=== PATIENT | male | born 1985 | race Caucasian/White ===

== ENCOUNTER 2017-07-10 15:01 | Emergency (ER) | payer SELFPAY ==
[~2017-07-10] VITALS: Ht 185.4 cm; Wt 102.3 kg
[~2017-07-10 15:01] MED LIST: AMOXICILLIN 50500 MG PO; ATIVAN 1MG T1 MG/TAB PO; DEPAKOTE500 MG PO; DESYREL 50MG50 MG PO; KLONOPIN 0.5MG0.5 MG PO; MINIPRESS 1M1 MG/CAP PO; NORCO 325 MG-7.1 TAB PO; PERCOCET 325 MG1 TA2 PO; ULTRAM 50MG TAB50 MG PO
[2017-07-10 15:03] VITALS: TEMP 100
[2017-07-10 15:52] LABS: BASO % 0.2 % (0.0-2.0); EOS % 0.1 % (0-4.0); GRAN # 5.6 (1.4-6.5); HEMATOCRIT 42.3 % (42.0-52.0); HEMOGLOBIN 14.7 g/dl (13.5-18.0); LYMPH # 1.6 (1.2-3.4); MEAN CELL VOLUME 87 fl (80.0-100.0); MEAN CORPUSCULAR HEMOGLOBIN 30 pg (27.0-31.0); MEAN CORPUSCULAR HGB CONC 35 g/dl (33.0-37.0); MEAN PLATELET VOLUME 9.6 fl (7.4-10.4); MONO # 1.6 (0.1-0.6); MONO % 18.4 % (1.7-9.3); PLATELET COUNT 207 K/mm3 (130-400); RED BLOOD COUNT 4.84 M/mm3 (4.20-5.60); REDCELL DISTRIBUTION WIDTH-CV 12.6 % (11.5-14.5); WHITE BLOOD COUNT 8.9 K/mm3 (4.8-10.8)
[2017-07-10 15:54] VITALS: BP 147/84; PULSE 86
[2017-07-10 15:59] LABS: ADJUSTED CALCIUM 8.8 mg/dL (8.4-10.2); ALBUMIN 4.8 gm/dL (3.5-5.0); CALCIUM 9.4 mg/dL (8.4-10.2); CREATININE, serum 0.83 mg/dL (0.66-1.25); POTASSIUM 3.7 mmol/L (3.4-5.0); TOTAL PROTEIN 8.7 gm/dL (6.4-8.2)
[2017-07-10] MEDS ORDERED: NORCO 325 MG-7.1 TAB PO (17:12)
== END 2017-07-10 17:50 | disposition home or self-care (01) ==
LOC: COL.ER 15:01
PROVIDERS: Nurse Practitioner
DX: K04.7 Periapical abscess without sinus (principal); J45.909 Unspecified asthma, uncomplicated; F32.9 Major depressive disorder, single episode, unspecified; F43.10 Post-traumatic stress disorder, unspecified; F17.220 Nicotine dependence, chewing tobacco, uncomplicated
CPT/HCPCS: J1170; J2405; J7030

== ENCOUNTER 2017-07-12 19:41 | Emergency (ER) | payer SELFPAY ==
[~2017-07-12] VITALS: Ht 185.4 cm; Wt 102.3 kg
[2017-07-12 19:43] VITALS: TEMP 98.8
[2017-07-12] MEDS ORDERED: CLEOCIN HCL300 MG PO (20:00)
[2017-07-12] MEDS ORDERED: MAGIC MOUTH PO (21:27)
[2017-07-12 21:51] VITALS: BP 128/80; PULSE 72
== END 2017-07-12 21:52 | disposition home or self-care (01) ==
LOC: COL.ER 19:41
DX: K06.8 Other specified disorders of gingiva and edentulous alveolar ridge (principal); F17.220 Nicotine dependence, chewing tobacco, uncomplicated; R07.9 Chest pain, unspecified

== ENCOUNTER 2018-03-16 13:37 | Day surgery (SDC) | payer OTHER ==
[~2018-03-16] VITALS: Ht 185.4 cm; Wt 103.6 kg
[~2018-03-16 13:37] MED LIST changes: +CLEOCIN HCL300 MG PO; +MAGIC MOUTH PO
[2018-03-16] MEDS ORDERED: PRILOSEC 20MG20 MG PO (14:03)
[2018-03-16 16:35] VITALS: BP 146/90; PULSE 84; TEMP 97.5
[2018-03-16 16:50] VITALS: BP 136/88; PULSE 87
[2018-03-16 17:05] VITALS: BP 129/85; PULSE 80
[2018-03-16 17:50] VITALS: BP 129/83; PULSE 76; TEMP 97.1
== END 2018-03-16 17:30 | disposition home or self-care (01) ==
LOC: SDCO 13:37
DX: K59.00 Constipation, unspecified (principal); K21.0 Gastro-esophageal reflux disease with esophagitis; K92.1 Melena; R19.7 Diarrhea, unspecified; K64.9 Unspecified hemorrhoids
CPT/HCPCS: J2250; J3010

== ENCOUNTER → 2023-02-19 | Outpatient (CLI) | payer OTHER ==
[~2023-02-19] MED LIST changes: +PRILOSEC 20MG20 MG PO
== END ==
LOC: COL.RAD 09:27
DX: Z01.89 Encounter for other specified special examinations (principal)
CPT/HCPCS: A9537; J2805